=== PATIENT | female | born 1950 | race Hispanic/Latino ===

== ENCOUNTER → 2017-12-05 | Outpatient (CLI) | payer MEDICARE ==
--- NOTE | 2017-12-05 18:26 | Diagnostic Imaging Report ---
PROCEDURE:X-RAY LEFT WRIST, COMPLETE COMPARISON:None. INDICATIONS:LEFT WRIST PAIN FINDINGS: Marked generalized osteopenia, which limits evaluation of the bony structures. Linear oblique lucency which traverses the lateral aspect of the distal radius and may have intra-articular extension. Other bony structures are intact. Mild degenerative changes in the carpal bones. Soft tissues are grossly unremarkable. CONCLUSION: Marked generalized osteopenia which limits evaluation of the bony structures. Findings in the lateral aspect of the distal radius may represent an acute nondisplaced intra-articular fracture in the setting of trauma. Correlate for point tenderness. Recommend MRI of the wrist for further evaluation, if clinically indicated. Richie Simental M.D. Dictated by: Richie Simental M.D. on 12/05/2017 at 18:31 Electronically approved by: Richie Simental M.D. on 12/05/2017 at 18:31
== END ==
LOC: RAD 14:23
PROVIDERS: ATTEND Specialist
DX: M25.532 Pain in left wrist (principal)

== ENCOUNTER → 2017-12-19 | Outpatient (CLI) | payer MEDICARE ==
--- NOTE | 2017-12-19 12:31 | Diagnostic Imaging Report ---
Left Wrist MRI without contrast. History: Fall. Wrist fracture. Swelling. Decreased range of motion. Comparison: Radiographs December 05, 2017 Technique: Multiplanar multisequence MRI of the wrist without contrast. Findings: There is a subacute appearing slightly comminuted impaction type fracture involving the distal radius with extension to the scaphoid fossa. There is minimal bone marrow edema and minimal adjacent soft tissue edema. The distal radial cortex is depressed by approximately 1 mm. This is best seen on series 9 image 19 through 21. Fracture extends to the distal radial ulnar joint. There is a small avulsion fracture involving the ulnar styloid. There is fraying/partial tearing involving the ulnar styloid fibers of the triangular fibrocartilage complex. There is a small distal radial ulnar joint effusion and mild synovitis with mild adjacent soft tissue edema. There is degeneration and fraying of the scapholunate ligament without tear. The lunotriquetral ligament is intact. There is mild extensor carpi ulnaris tendinosis without tear or retraction. The remainder of the tendons are intact. There is a dorsal capsular sprain and mild synovitis. There is neutral ulnar variance. No osteochondral lesion. No dislocation. Signal intensity within the median nerve is normal. No ganglion cyst. There is normal alignment in the wrist. Impression: Subacute appearing slightly comminuted impaction type fracture involving the distal radius with extension to the scaphoid fossa Small avulsion fracture involving the ulnar styloid Fraying/partial tearing involving the ulnar styloid fibers of the triangular fibrocartilage complex. There is a small distal radial ulnar joint effusion and mild synovitis with mild adjacent soft tissue edema. Signed by: Dr. Mac Martini M.D. on 12/19/2017 12:28 PM
== END ==
LOC: MRI 10:40
PROVIDERS: ATTEND Specialist
DX: S62.101A Fracture of unspecified carpal bone, right wrist, initial encounter for closed fracture (principal)

== ENCOUNTER → 2018-12-11 | Day surgery (SDC) | payer MEDICARE ==
[2018-12-04 12:50] LABS: BASOPHILS # (AUTO) 0.1 (0.0-0.1); BASOPHILS % 1.1 % (0.0-1.0); EOSINOPHILS # (AUTO) 0.3 (0.0-0.4); EOSINOPHILS % 2.6 % (0.0-6.0); HEMATOCRIT 35.2 % (34.2-44.1); HEMOGLOBIN 10.6 g/dL (12.0-16.0); LYMPHOCYTES # (AUTO) 2.5 (1.0-3.2); LYMPHOCYTES % 23.3 % (18.0-39.1); MEAN CORPUSCULAR HEMOGLOBIN 27.4 pg (28-32); MEAN CORPUSCULAR HGB CONC 30.1 g/dL (31-35); MONOCYTES # (AUTO) 0.6 (0.2-0.8); MONOCYTES % 5.4 % (4.4-11.3); NEUTROPHILS # (AUTO) 7.1 (2.1-6.9); NEUTROPHILS % 67.1 % (38.7-80.0); PLATELET COUNT 311 x10e3/uL (140-360); RED BLOOD COUNT 3.87 x10e6/uL (3.6-5.1); RED CELL DISTRIBUTION WIDTH 13.9 % (11.7-14.4)
[2018-12-04 13:05] LABS: ANION GAP 14.8 mmol/L (8-16); BLOOD UREA NITROGEN 28 mg/dL (7-26); BUN/CREATININE RATIO 31 (6-25); CALCIUM 9.6 mg/dL (8.4-10.2); CARBON DIOXIDE 25 mmol/L (22-29); CHLORIDE 106 mmol/L (98-107); CREATININE, SERUM 0.91 mg/dL (0.57-1.11); EST GLOMERULAR FILTRATION RATE > 60 ML/MIN (60-); GLUCOSE 106 mg/dL (74-118); POTASSIUM 4.8 mmol/L (3.5-5.1); SODIUM 141 mmol/L (136-145)
[~2018-12-11] MED LIST: BUPIVACAINE HC 0.75% PF 10ML VIAL INJ ONE; CARVEDILOL12.5 MG PO; CHONDR SU A NA/HYALUR SOD 1 EACH KIT IO ONE; CYCLOPENTOLATE HCL 2% OPTH SOLN 2 ML BTL OP ONE; EPINEPHRINE HCL 1:1000 1ML 1 MG/ML AMP ONE; FENTANYL CITRATE/PF 100MCG/2 ML INJ ONE; FERROCITE324 MG PO; GATIFLOXACIN(OPTH) 5 ML LIQD ONE; GLIPIZIDE5 MG PO; GLYCOPYRROLATE INJ 1MG/ 5 ML SYR ONE; HYDROCHLOROTHIA25 MG PO; LIDOCAINE 2% /EPINEPHRINE 20 ML SDV INJ ONE; LISINOPRIL10 MG PO; MIDAZOLAM HCL 2 MG/2 ML VIAL ONE; PHENYLEPHRINE HCL 2 ML DROPS ONE; PILOCARPINE HCL(OPTH) 15 ML LIQD ONE; PIOGLITAZONE HC45 MG PO; POVIDONE IODINE 5% (OPTH) 30 ML BTL ONE; PROPOFOL IV EMULSION 10 MG/ML 20 ML VIAL ONE; TOBRAMYCIN/DEXAMETHASONE(OPTH) 3.5 GM TUBE ONE; TYLENOL EXTRA500 MG PO
--- OUTSIDE RECORDS SUMMARY | 2018-12-11 06:15 | XMS REPORT ---
Author Author [facility] Address Unknown Phone Unavailable Care Team Providers Care Relief Docking Master Name Role Phone DIXON COSTELLO Unavailable Unavailable Problems This patient has no known problems. Allergies, Adverse Reactions, Alerts This patient has no known allergies or adverse reactions. Medications This patient has no known medications. Results Test Description Test Time Test Comments Text Results Atomic Results Result Comments SCR MAMM BILATERAL JUANITA CAD DIGITAL 2018-05-29 15:37:35 - SCR MAMM BILATERAL JUANITA CAD DIGITALBILATERAL DIGITAL SCREENING MAMMOGRAM 3D/2D WITH CAD: 05/29/2018CLINICAL: Asymptomatic. Current mammographic images were evaluated by either a Page Mage M-Vu or an CinsayD version 7.2 computer aided detection system. No prior exams were available for comparison. The tissue of both breasts is predominantly fatty. No suspicious mass, architectural distortion, malignant type calcification, or lymph node abnormality detected. IMPRESSION: NEGATIVEThere is no mammographic evidence of malignancy. Resume annual screening mammography in one year. Elina Morales M.D. ar/penrad:05/29/2018 15:37:35 Photo Equipment Technician: Bruce TORRES, [facility]-FWletter sent: BIRADS 1-2 Normal Mammogram BI-RADS: 1 Negative MRI WRIST LEFT WO 2017-12-19 12:10:00 [place] [id number] Patient Name: GIL SHERIDAN MR #: [id number] : 1950 Age/Sex: 67/F Req #: [id number] Adm Physician: Ordered by: DIXON COSTELLO MD Report #: [id number] Location: MRI Room/Bed: Procedure: [id number] MRI/MRI WRIST LEFT WO Exam Date: Exam Time: REPORT STATUS: Signed Left Wrist MRI without contrast. History: Fall. Wrist fracture. Swelling. Decreased range of motion. Comparison: Radiographs December 05, 2017 Technique: Multiplanar multisequence MRI of the wrist without contrast. Findings: There is a subacute appearing slightly comminuted impaction type fracture involving the distal radius with extension to the scaphoid fossa. There is minimal bone marrow edema and minimal adjacent soft tissue edema. The distal radial cortex is depressed by approximately 1 mm. This is best seen on series 9 image 19 through 21. Fracture extends to the distal radial ulnar joint. There is a small avulsion fracture involving the ulnar styloid. There is fraying/partial tearing involving the ulnar styloid fibers of the triangular fibrocartilage complex. There is a small distal radial ulnar joint effusion and mild synovitis with mild adjacent soft tissue edema. There is degeneration and fraying of the scapholunate ligament without tear. The lunotriquetral ligament is intact. There is mild extensor carpi ulnaris tendinosis without tear or retraction. The remainder of the tendons are intact. There is a dorsal capsular sprain and mild synovitis. There is neutral ulnar variance. No osteochondral lesion. No dislocation. Signal intensity within the median nerve is normal. No ganglion cyst. There is normal alignment in the wrist. Impression: Subacute appearing slightly comminuted impaction type fracture involving the distal radius with extension to the scaphoid fossa Small avulsion fracture involving the ulnar styloid Fraying/partial tearing involving the ulnar styloid fibers of the triangular fibrocartilage complex. There is a small distal radial ulnar joint effusion and mild synovitis with mild adjacent soft tissue edema. Signed by: Dr. Mac Martini M.D. on 12/19/2017 12:28 PM Dictated By: MAC MARTINI MD, MD [id number] Transcribed By: JUNE on 12/19/17 1228 COPY TO: DIXON COSTELLO MD WRIST COMPLETE LEFT 2017-12-05 18:31:00 [place] [id number] [place] [id number] Patient Name: GIL SHERIDAN MR #: [id number] : 1950 Age/Sex: 67/F Req #: [id number] Adm Physician: Ordered by: DIXON COSTELLO MD Report #: [id number] Location: [facility] Room/Bed: Procedure: [id number] DX/WRIST COMPLETE LEFT Exam Date: 12/05/17 Exam Time: 1450 REPORT STATUS: Signed PROCEDURE: X-RAY LEFT WRIST, COMPLETE COMPARISON: None. INDICATIONS: LEFT WRIST PAIN FINDINGS: Marked generalized osteopenia, which limits evaluation of the bony structures. Linear oblique lucency which traverses the lateral aspect of the distal radius and may have intra-articular extension. Other bony structures are intact. Mild degenerative changes in the carpal bones. Soft tissues are grossly u nremarkable. CONCLUSION: Marked generalized osteopenia which limits evaluation of the bony structures. Findings in the lateral aspect of the distal radius may represent an acute nondisplaced intra-articular fracture in the setting of trauma. Correlate for point tenderness. Recommend MRI of the wrist for further evaluation, if clinically indicated. Raj Simental M.D. Dictated by: Raj Simental M.D. on 12/05/2017 at 18:31 Electronically approved by: Raj Simental M.D. on 12/05/2017 at 18:31 Dictated By: RAJ ISMENTAL MD 30 Transcribed By: LUZ on 12/05/171830 COPY TO: DIXON COSTLELO MD
[2018-12-11 09:30] VITALS: BP 152/72
== END | disposition home or self-care (01) ==
LOC: OR 06:12
PROVIDERS: ATTEND Ophthalmology
DX: H25.11 Age-related nuclear cataract, right eye (principal); E11.9 Type 2 diabetes mellitus without complications; I10 Essential (primary) hypertension; D64.9 Anemia, unspecified; Z01.810 Encounter for preprocedural cardiovascular examination; Z01.812 Encounter for preprocedural laboratory examination; Z79.84 Long term (current) use of oral hypoglycemic drugs
CPT/HCPCS: 36415 ×2; 66982; 80048; 82948; 85025; 93005; J0171; J2001; J2250; J2704; J3010; J3490; V2632

== ENCOUNTER → 2019-01-22 | Day surgery (SDC) | payer MEDICARE ==
[2019-01-15 12:10] LABS: BASOPHILS # (AUTO) 0.1 (0.0-0.1); BASOPHILS % 1.1 % (0.0-1.0); EOSINOPHILS # (AUTO) 0.3 (0.0-0.4); EOSINOPHILS % 3.2 % (0.0-6.0); HEMATOCRIT 32.2 % (34.2-44.1); HEMOGLOBIN 10.1 g/dL (12.0-16.0); LYMPHOCYTES # (AUTO) 2.4 (1.0-3.2); MEAN CORPUSCULAR HEMOGLOBIN 28.3 pg (28-32); MEAN CORPUSCULAR HGB CONC 31.4 g/dL (31-35); MEAN CORPUSCULAR VOLUME 90.2 fL (81-99); MONOCYTES # (AUTO) 0.6 (0.2-0.8); MONOCYTES % 6.1 % (4.4-11.3); NEUTROPHILS # (AUTO) 6.1 (2.1-6.9); NEUTROPHILS % 64.2 % (38.7-80.0); PLATELET COUNT 339 x10e3/uL (140-360); RED BLOOD COUNT 3.57 x10e6/uL (3.6-5.1); RED CELL DISTRIBUTION WIDTH 14.4 % (11.7-14.4)
[~2019-01-22] MED LIST changes: +BALANCED SALT SOLN (OPTH) 15 ML BTL IO ONE; -CHONDR SU A NA/HYALUR SOD 1 EACH KIT IO ONE; +CYCLOPENTOLATE HCL 1% OPTH SOLN 2ML BTL ONE; -CYCLOPENTOLATE HCL 2% OPTH SOLN 2 ML BTL OP ONE; -FENTANYL CITRATE/PF 100MCG/2 ML INJ ONE; -GATIFLOXACIN(OPTH) 5 ML LIQD ONE; +GATIFLOXACIN(OPTH) 5 ML LIQD OP ONE; -GLYCOPYRROLATE INJ 1MG/ 5 ML SYR ONE; +LIDOCAINE HCL 2% LOCAL INJ 5 ML SDV VIAL INJ ONE; +LIDOCAINE HCL-PF 4% 40 MG/1 ML 5ML AMP ONE
[2019-01-22 10:25] VITALS: BP 139/68
== END | disposition home or self-care (01) ==
LOC: OR 06:32
PROVIDERS: ATTEND Ophthalmology
DX: H25.12 Age-related nuclear cataract, left eye (principal); E11.9 Type 2 diabetes mellitus without complications; I10 Essential (primary) hypertension; R42 Dizziness and giddiness; R06.83 Snoring; D64.9 Anemia, unspecified; Z01.812 Encounter for preprocedural laboratory examination; Z79.84 Long term (current) use of oral hypoglycemic drugs
CPT/HCPCS: 36415 ×2; 66982; 82948; 85025; J0171; J2001 ×2; J2250; J2704; V2632

== ENCOUNTER → 2019-10-16 | Day surgery (SDC) | payer MEDICARE, OTHER ==
[2019-10-13 10:34] LABS: BASOPHILS # (AUTO) 0.2 (0.0-0.1); BASOPHILS % 1.1 % (0.0-1.0); EOSINOPHILS # (AUTO) 0.3 (0.0-0.4); EOSINOPHILS % 2.1 % (0.0-6.0); HEMATOCRIT 37.7 % (34.2-44.1); HEMOGLOBIN 11.6 g/dL (12.0-16.0); LYMPHOCYTES # (AUTO) 2.9 (1.0-3.2); LYMPHOCYTES % 19.4 % (18.0-39.1); MEAN CORPUSCULAR HEMOGLOBIN 27.8 pg (28-32); MEAN CORPUSCULAR HGB CONC 30.8 g/dL (31-35); MEAN CORPUSCULAR VOLUME 90.4 fL (81-99); MONOCYTES # (AUTO) 0.8 (0.2-0.8); NEUTROPHILS # (AUTO) 10.8 (2.1-6.9); NEUTROPHILS % 71.9 % (38.7-80.0); PLATELET COUNT 483 x10e3/uL (140-360); RED BLOOD COUNT 4.17 x10e6/uL (3.6-5.1); RED CELL DISTRIBUTION WIDTH 13.5 % (11.7-14.4)
[~2019-10-16] MED LIST changes: -BALANCED SALT SOLN (OPTH) 15 ML BTL IO ONE; -BUPIVACAINE HC 0.75% PF 10ML VIAL INJ ONE; +COREG12.5 MG PO; -CYCLOPENTOLATE HCL 1% OPTH SOLN 2ML BTL ONE; +EPHEDRINE SULFATE INJ 50 MG/ML VIAL ONE; -EPINEPHRINE HCL 1:1000 1ML 1 MG/ML AMP ONE; +FARXIGA10 MG PO; -GATIFLOXACIN(OPTH) 5 ML LIQD OP ONE; -LIDOCAINE 2% /EPINEPHRINE 20 ML SDV INJ ONE; -LIDOCAINE HCL-PF 4% 40 MG/1 ML 5ML AMP ONE; -MIDAZOLAM HCL 2 MG/2 ML VIAL ONE; -PHENYLEPHRINE HCL 2 ML DROPS ONE; -PILOCARPINE HCL(OPTH) 15 ML LIQD ONE; -POVIDONE IODINE 5% (OPTH) 30 ML BTL ONE; -TOBRAMYCIN/DEXAMETHASONE(OPTH) 3.5 GM TUBE ONE
[2019-10-16 07:45] VITALS: BP 115/63
== END | disposition home or self-care (01) ==
LOC: OR 05:24
PROVIDERS: ATTEND Internal Medicine Gastroenterology
DX: Z12.11 Encounter for screening for malignant neoplasm of colon (principal); D12.5 Benign neoplasm of sigmoid colon; K57.30 Diverticulosis of large intestine without perforation or abscess without bleeding; K64.8 Other hemorrhoids; Z71.3 Dietary counseling and surveillance; I10 Essential (primary) hypertension; E11.9 Type 2 diabetes mellitus without complications; E66.01 Morbid (severe) obesity due to excess calories; Z01.810 Encounter for preprocedural cardiovascular examination; Z01.812 Encounter for preprocedural laboratory examination; Z11.59 Encounter for screening for other viral diseases; Z79.84 Long term (current) use of oral hypoglycemic drugs; Z68.42 Body mass index [BMI] 45.0-49.9, adult
CPT/HCPCS: 36415 ×2; 45385; 82948; 85025; 87635; 93005; J2001; J2704

== ENCOUNTER → 2022-10-27 | Day surgery (SDC) | payer MEDICARE ==
[2022-10-25 09:30] LABS: BASOPHILS # (AUTO) 0.1 (0.0-0.1); BASOPHILS % 0.8 % (0.0-1.0); EOSINOPHILS # (AUTO) 0.3 (0.0-0.4); HEMATOCRIT 35.2 % (34.2-44.1); LYMPHOCYTES # (AUTO) 2.7 (1.0-3.2); LYMPHOCYTES % 18.9 % (18.0-39.1); MEAN CORPUSCULAR HEMOGLOBIN 28.1 pg (28-32); MEAN CORPUSCULAR HGB CONC 31.3 g/dL (31-35); MONOCYTES # (AUTO) 0.8 (0.2-0.8); MONOCYTES % 5.7 % (4.4-11.3); NEUTROPHILS # (AUTO) 10.3 (2.1-6.9); PLATELET COUNT 387 x10e3/uL (140-360); RED BLOOD COUNT 3.91 x10e6/uL (3.6-5.1); RED CELL DISTRIBUTION WIDTH 12.8 % (11.7-14.4)
[~2022-10-27] MED LIST changes: -EPHEDRINE SULFATE INJ 50 MG/ML VIAL ONE; +GLYCOPYRROLATE INJ 0.2 MG/ML VIAL ONE; +HYDRALAZINE HCL50 MG PO; +HYOSCYAMINE SULFATE 0.5 MG/ML INJ ONE; +LACTATED RINGER'S 1,000 ML BAG IV ONE; +LINZESS145 MCG PO; +POVIDONE IODINE 0.05% 0.05 % ML PO ONE; +TOUJEO SOL300 UNIT/1 SQ
[2022-10-27 14:11] VITALS: TEMP 98.2
[2022-10-27 15:10] VITALS: BP 143/80; PULSE 75; RESP 17; O2SAT 96
== END | disposition home or self-care (01) ==
LOC: OR 10:06
PROVIDERS: ATTEND Internal Medicine Gastroenterology
DX: Z12.11 Encounter for screening for malignant neoplasm of colon (principal); D12.0 Benign neoplasm of cecum; D12.2 Benign neoplasm of ascending colon; D12.4 Benign neoplasm of descending colon; K31.7 Polyp of stomach and duodenum; K62.1 Rectal polyp; K29.50 Unspecified chronic gastritis without bleeding; K29.60 Other gastritis without bleeding; K57.30 Diverticulosis of large intestine without perforation or abscess without bleeding; K31.89 Other diseases of stomach and duodenum; K44.9 Diaphragmatic hernia without obstruction or gangrene; K64.8 Other hemorrhoids; E11.9 Type 2 diabetes mellitus without complications; I10 Essential (primary) hypertension; E66.2 Morbid (severe) obesity with alveolar hypoventilation; I45.4 Nonspecific intraventricular block; Z01.810 Encounter for preprocedural cardiovascular examination; Z01.812 Encounter for preprocedural laboratory examination; Z79.4 Long term (current) use of insulin; Z79.84 Long term (current) use of oral hypoglycemic drugs; Z79.899 Other long term (current) drug therapy
CPT/HCPCS: 36415 ×2; 43239; 45384; 45385; 82948; 85025; 88305; 88342; 93005; J1980; J2001; J2704; J7121; 43251